=== PATIENT | male | born 1980 | race Two or more races ===

== ENCOUNTER → 2024-08-29 | Outpatient (BNVA) | payer BC, SELFPAY | END | disposition home or self-care (01) | PROVIDERS: PCP Nurse Practitioner Family; Referring Provider Nurse Practitioner Family; Visit Provider Urology | DX: N40.1 Benign prostatic hyperplasia with lower urinary tract symptoms (principal); N13.8 Other obstructive and reflux uropathy; Z98.52 Vasectomy status; N43.3 Hydrocele, unspecified; N50.3 Cyst of epididymis; E78.5 Hyperlipidemia, unspecified; E66.9 Obesity, unspecified; Z68.30 Body mass index [BMI] 30.0-30.9, adult | CPT/HCPCS: 81003; 99212; G0463 ==

== ENCOUNTER → 2024-09-27 | Outpatient (CLI) | payer BC, SELFPAY ==
--- NOTE | 2024-09-27 11:00 | XR_ITS ---
Examination: Testicular sonography complete TECHNIQUE: Grayscale sonographic images testes with carful analysis Exam date and time: September 27, 2024 1137 hours INDICATIONS: History right epididymal cyst, facetectomy 2002 FINDINGS: Right testis 4.7 x 2.7 x 3.2 cm Epididymis 16mm 7 x 6 mm right epididymal cyst Arterial flow testicle. No testicular mass Left testis 4.5 x 2.5 x 3.5 cm Epididymis 14 mm Arterial flow testicle. No testicular mass Mild left hydrocele IMPRESSION: No testicular torsion or testicular mass Small benign right epididymal cyst 7 by 5 to 6 mm
== END | disposition home or self-care (01) ==
LOC: CDIM 11:10
PROVIDERS: PCP Family Medicine; Referring Provider Urology; Visit Provider Urology
DX: N50.3 Cyst of epididymis (principal)
CPT/HCPCS: 76870

== ENCOUNTER → 2024-11-29 | Outpatient (BNVA) | payer BC, SELFPAY | END | disposition home or self-care (01) | PROVIDERS: PCP Nurse Practitioner Family; Referring Provider Nurse Practitioner Family; Visit Provider Urology | DX: N40.1 Benign prostatic hyperplasia with lower urinary tract symptoms (principal); N13.8 Other obstructive and reflux uropathy; Z80.42 Family history of malignant neoplasm of prostate; N50.3 Cyst of epididymis; N43.3 Hydrocele, unspecified; Z98.52 Vasectomy status; E78.5 Hyperlipidemia, unspecified | CPT/HCPCS: 81003; 99212; G0463 ==

== ENCOUNTER → 2025-02-24 | Outpatient (CLI) | payer BC, SELFPAY ==
--- NOTE | 2025-02-24 | XR_ITS ---
Examination:Right hip AP, lateral, AP pelvis 3 views Technique: Hip AP lateral, AP pelvis, 3 views Exam date and time:February 24, 2025 0733 hours INDICATIONS: Right hip pain beginning 10 months ago. FINDINGS: Mild to moderate narrowing hip joints No hip fracture or pelvic fracture IMPRESSION: Mild to moderate narrowing hip joints.
== END | disposition home or self-care (01) ==
LOC: CDIM 07:17
PROVIDERS: PCP Nurse Practitioner Family; Referring Provider Nurse Practitioner Family; Visit Provider Nurse Practitioner Family
DX: M25.851 Other specified joint disorders, right hip (principal)
CPT/HCPCS: 73502